=== PATIENT | male | born 1955 ===

== ENCOUNTER → 2025-02-15 09:42 | Outpatient (REF) | payer OTHER, SELFPAY | LOC: RAD 09:42 | PROVIDERS: ATTENDING PHYSICIAN Surgery Vascular Surgery | DX: I70.1 Atherosclerosis of renal artery (principal) | CPT/HCPCS: 93975 ==

== ENCOUNTER → 2025-06-22 13:57 | Outpatient (REF) | payer OTHER, SELFPAY ==
[2025-06-22 16:03] LABS: Hemoglobin 15.1 g/dL (13.0-18.0)
[2025-06-22 16:27] LABS: Blood Urea Nitrogen 16 mg/dl (9-20); Calcium 9.8 mg/dl (8.4-10.2); Carbon Dioxide 26 mmol/L (22-30); Chloride 104 mmol/L (98-107); Glucose 89 mg/dl (70-99); Potassium 4.0 mmol/L (3.5-5.1); Sodium 137 mmol/L (135-145); eGFR > 60.00
== END ==
LOC: RAD 13:57
PROVIDERS: ATTENDING PHYSICIAN Surgery Vascular Surgery; FAMILY PHYSICIAN Internal Medicine; OTHER PHYSICIAN Specialist
DX: I70.1 Atherosclerosis of renal artery (principal); I73.9 Peripheral vascular disease, unspecified
CPT/HCPCS: 36415; 80048; 82570; 83970; 84100; 84156; 85018; 93922; 93923; 93925; 93930

== ENCOUNTER → 2025-07-07 10:14 | Outpatient (REF) | payer OTHER, SELFPAY | LOC: RAD 10:14 | PROVIDERS: ATTENDING PHYSICIAN Specialist; FAMILY PHYSICIAN Internal Medicine | DX: I70.1 Atherosclerosis of renal artery (principal) | CPT/HCPCS: 76770 ==